=== PATIENT | male | born 1990 | race Caucasian/White ===

== ENCOUNTER 2017-12-18 02:26 | Emergency (ER) | payer OTHER ==
[~2017-12-18] VITALS: Ht 182.9 cm; Wt 93.0 kg
[2017-12-18] MEDS ORDERED: IBUPROFEN 400MG TABLET PO ONE (03:00)
[2017-12-18 03:23] LABS: BASOPHILS % 0.5 % (0.0-2.0); EOSINOPHILS % 5.8 % (0.0-5.0); HEMATOCRIT. 42.8 % (42.0-52.0); LYMPHOCYTES % 30.2 % (20.0-50.0); MEAN CORPUSCULAR HEMOGLOBIN 31.5 pg (28.0-32.0); MEAN CORPUSCULAR VOLUME 89.8 fL (80.0-94.0); MEAN PLATELET VOLUME 8.6 fl (7.4-10.4); MONOCYTES % 8.6 % (2.0-8.0); NEUTROPHILS % 54.9 % (40.0-76.0); PLATELET 216 x1000/uL (130-400); RED BLOOD CELL COUNT 4.77 mill/uL (4.7-6.1); RED CELL DISTRIBUTION WIDTH 13.1 % (11.6-14.6)
[2017-12-18 04:01] LABS: CARBON DIOXIDE 27 mEq/L (21-32); CHLORIDE 106 mEq/L (98-107)
[2017-12-18 04:03] LABS: TROPONIN I < 0.02 ng/mL (0.00-0.04)
[2017-12-18 04:33] VITALS: BP 122/78
== END 2017-12-18 04:30 | disposition home or self-care (01) ==
LOC: ER 02:26
DX: F41.1 Generalized anxiety disorder (principal); Z87.891 Personal history of nicotine dependence
CPT/HCPCS: 36415; 71045; 80053; 83690; 84484; 85025; 93005; 99285

== ENCOUNTER 2019-10-24 20:01 | Emergency (ER) | payer MEDICAID, OTHER ==
[~2019-10-24] VITALS: Ht 180.3 cm; Wt 98.0 kg
[2019-10-24 23:06] LABS: BASOPHILS % 0.7 % (0.0-2.0); EOSINOPHILS % 5.2 % (0.0-5.0); HEMATOCRIT. 47.6 % (42.0-52.0); HEMOGLOBIN. 16.5 g/dL (14.0-18.0); LYMPHOCYTES % 30.5 % (20.0-50.0); MEAN CORPUSCULAR HEMOGLOBIN 31.6 pg (28.0-32.0); MEAN CORPUSCULAR VOLUME 90.9 fL (80.0-94.0); MEAN PLATELET VOLUME 8.9 fl (7.4-10.4); MONOCYTES % 8.5 % (2.0-8.0); NEUTROPHILS % 55.1 % (40.0-76.0); PLATELET 294 x1000/uL (130-400); RED BLOOD CELL COUNT 5.24 mill/uL (4.7-6.1); RED CELL DISTRIBUTION WIDTH 13.5 % (11.6-14.6)
[2019-10-24 23:11] LABS: CHLORIDE 108 mEq/L (98-107)
[2019-10-24 23:14] LABS: D-DIMER 0.24 mg/L FEU (<0.50); PARTIAL THROMBOPLASTIN TIME 28.4 sec (23.4-31.0); PROTHROMBIN TIME 10.1 sec (9.6-11.0)
[2019-10-25 02:08] VITALS: BP 100/65
== END 2019-10-25 02:12 | disposition home or self-care (01) ==
LOC: ER 20:01 → CANBEDREQ 10-25 08:14
DX: R07.89 Other chest pain (principal); M79.605 Pain in left leg; M79.604 Pain in right leg
CPT/HCPCS: 36415; 71045; 71275; 80053; 83880; 84484; 85025; 85379; 93005; 93970; 99284

== ENCOUNTER 2020-01-30 02:29 | Emergency (ER) | payer MEDICAID, OTHER ==
[~2020-01-30] VITALS: Ht 177.8 cm; Wt 88.0 kg
[2020-01-30] MEDS ORDERED: IPRATROPIUM BROMIDE (0.02%) 0.5MG/2.5ML NEB HHN STA (04:13)
[2020-01-30] MEDS ORDERED: ALBUTEROL (0.083%) 2.5MG/3ML NEB HHN STA (04:13)
[2020-01-30] MEDS ORDERED: IPRATROPIUM BROMIDE (0.02%) 0.5MG/2.5ML NEB HHN ONE (04:30)
[2020-01-30 05:00] VITALS: BP 150/95
== END 2020-01-30 05:15 | disposition home or self-care (01) ==
LOC: ER 03:30
DX: R05 Cough (principal); R07.89 Other chest pain; Z88.0 Allergy status to penicillin
CPT/HCPCS: 71045; 99283

== ENCOUNTER 2020-06-11 16:02 | Inpatient (IN) | payer MEDICAID, OTHER ==
[~2020-06-11] VITALS: Ht 165.1 cm; Wt 74.9 kg
[2020-06-11] MEDS ORDERED: DIAZEPAM 5 MG TABLET PO ONE (17:30)
[2020-06-11] MEDS: ACETAMINOPHEN 325MG TABLET PO STA ×2 (17:46→18:28)
[2020-06-11 18:36] LABS: CLARITY URINE CLEAR (CLEAR); COLOR URINE YELLOW (YELLOW); KETONES URINE NEGATIVE (NEGATIVE); LEUKOCYTE ESTERASE URINE NEGATIVE (NEGATIVE); NITRITE URINE NEGATIVE (NEGATIVE); OCCULT BLOOD URINE NEGATIVE (NEGATIVE); PH URINE 5.5 (4.5-8.0); PROTEIN URINE NEGATIVE (NEGATIVE); SPECIFIC GRAVITY URINE 1.028 (1.005-1.030); UROBILINOGEN URINE 0.2 E.U./dL (0.2-1.0)
[2020-06-11 18:46] LABS: BASOPHILS % 0.8 % (0.0-2.0); EOSINOPHILS % 3.3 % (0.0-5.0); HEMATOCRIT. 45.8 % (42.0-52.0); LYMPHOCYTES % 18.7 % (20.0-50.0); MEAN CORPUSCULAR HEMOGLOBIN 32.2 pg (28.0-32.0); MEAN CORPUSCULAR VOLUME 92.2 fL (80.0-94.0); MEAN PLATELET VOLUME 9.2 fl (7.4-10.4); MONOCYTES % 9.2 % (2.0-8.0); PLATELET 204 x1000/uL (130-400); RED BLOOD CELL COUNT 4.97 mill/uL (4.7-6.1); RED CELL DISTRIBUTION WIDTH 13.1 % (11.6-14.6)
[2020-06-11 18:52] LABS: CHLORIDE 107 mEq/L (98-107)
[2020-06-11 18:55] LABS: PROTHROMBIN TIME 10.6 sec (9.6-11.0)
[2020-06-12 02:30] VITALS: BP 117/80
[2020-06-12] MEDS ORDERED: MORPHINE SULFATE 2 MG/ML CPJ (NOT FOR IM USE) IV PRN (03:15)
[2020-06-12] MEDS ORDERED: HYDROCODONE/ACETAMINOPHEN 10/325MG TABLET PO PRN (03:45)
[2020-06-12] MEDS ORDERED: ACET125T3 PO (05:08)
[2020-06-12] MEDS ORDERED: PRED1TAB PO (05:08)
[2020-06-12 08:00] VITALS: BP 104/67
[2020-06-12 12:00] VITALS: BP 110/77
[2020-06-12] MEDS ORDERED: LACTULOSE 20G/30ML UDC PO NR (13:00)
[2020-06-12] MEDS ORDERED: TRAM50TA MT (13:01)
[2020-06-12] MEDS ORDERED: SORBITOL 70% SOLN 30ML PO PRN (14:45)
[2020-06-12 16:00] VITALS: BP 122/68
[2020-06-12 17:52] VITALS: BP 122/68
[2020-06-12 18:04] LABS: HEMATOCRIT 45.7 % (42.0-52.0); HEMOGLOBIN 15.6 g/dL (14.0-18.0)
== END 2020-06-12 18:30 | disposition home or self-care (01) | DRG 347 ==
LOC: ER 16:02 → MICUSO 23:47 → EDBEDREQTM 23:52 → EDBEDREQ 23:52 → 6EST 06-12 01:41
PROVIDERS: ADMIT Internal Medicine; ATTEND Internal Medicine
DX: M51.26 Other intervertebral disc displacement, lumbar region (principal); M48.061 Spinal stenosis, lumbar region without neurogenic claudication; M47.816 Spondylosis without myelopathy or radiculopathy, lumbar region; N20.0 Calculus of kidney; G89.29 Other chronic pain; Z82.49 Family history of ischemic heart disease and other diseases of the circulatory system; Z87.442 Personal history of urinary calculi; Z88.0 Allergy status to penicillin; Z79.899 Other long term (current) drug therapy
CPT/HCPCS: 36415; 72148; 74176; 80053; 81003; 82270; 85014; 85018; 85025; 93005; 97161; 99285; J2270

== ENCOUNTER 2020-06-22 20:58 | Inpatient (IN) | payer OTHER ==
[~2020-06-22] VITALS: Ht 175.3 cm; Wt 95.7 kg
[~2020-06-22 20:58] MED LIST: ACET125T3 PO; PRED1TAB PO; TRAM50TA MT
[2020-06-22 23:02] LABS: BASOPHILS % 0.6 % (0.0-2.0); EOSINOPHILS % 4.3 % (0.0-5.0); HEMOGLOBIN. 15.7 g/dL (14.0-18.0); LYMPHOCYTES % 20.6 % (20.0-50.0); MEAN CORPUSCULAR HEMOGLOBIN 32.1 pg (28.0-32.0); MEAN CORPUSCULAR VOLUME 92.3 fL (80.0-94.0); MEAN PLATELET VOLUME 9.1 fl (7.4-10.4); MONOCYTES % 9.4 % (2.0-8.0); NEUTROPHILS % 65.1 % (40.0-76.0); PLATELET 208 x1000/uL (130-400); RED BLOOD CELL COUNT 4.88 mill/uL (4.7-6.1); RED CELL DISTRIBUTION WIDTH 12.9 % (11.6-14.6)
[2020-06-22 23:09] LABS: CHLORIDE 109 mEq/L (98-107)
[2020-06-22 23:16] LABS: PROTHROMBIN TIME 10.1 sec (9.6-11.0)
[2020-06-22] MEDS ORDERED: SODIUM CHLORIDE 0.9% 1,000 ML IV ONE (23:45)
[2020-06-23 00:44] LABS: PROTHROMBIN TIME 10.4 sec (9.6-11.0)
[2020-06-23 00:46] LABS: CHLORIDE 108 mEq/L (98-107)
[2020-06-23] MEDS ORDERED: MORPHINE SULFATE 4 MG/ML CPJ (NOT FOR IM USE) IV ONE (01:30)
[2020-06-23 03:28] LABS: CLARITY URINE CLEAR (CLEAR); COLOR URINE YELLOW (YELLOW); KETONES URINE NEGATIVE (NEGATIVE); LEUKOCYTE ESTERASE URINE NEGATIVE (NEGATIVE); NITRITE URINE NEGATIVE (NEGATIVE); OCCULT BLOOD URINE NEGATIVE (NEGATIVE); PROTEIN URINE NEGATIVE (NEGATIVE); SPECIFIC GRAVITY URINE 1.025 (1.005-1.030); UROBILINOGEN URINE 0.2 E.U./dL (0.2-1.0)
[2020-06-23 04:19] VITALS: BP 120/61
[2020-06-23] MEDS ORDERED: MORPHINE SULFATE 2 MG/ML CPJ (NOT FOR IM USE) IV PRN ×2 (06:00→15:30)
[2020-06-23 08:00] VITALS: BP_SYST 74
[2020-06-23] MEDS ORDERED: IPRATROPIUM/ALBUTEROL 0.5-3(2.5)MG/3ML NEB HHN PRN (08:45)
[2020-06-23] MEDS ORDERED: HYDROCODONE/ACETAMINOPHEN 5/325MG TABLET PO PRN (08:45)
[2020-06-23] MEDS ORDERED: ONDANSETRON HCL 4MG/2ML INJ IV PRN (08:45)
[2020-06-23] MEDS ORDERED: CLONIDINE 0.1MG TABLET PO PRN (08:45)
[2020-06-23] MEDS ORDERED: DOCUSATE SODIUM 100MG CAPSULE PO PRN (08:45)
[2020-06-23] MEDS ORDERED: MAGNESIUM/ALUMINUM HYDROXIDE/SIMETHICONE 30ML UDC PO PRN (08:45)
[2020-06-23] MEDS ORDERED: DIATR MEGLU/DIATRIZOATE SOLN 30ML PO SCH (09:15)
[2020-06-23] MEDS: PANTOPRAZOLE SODIUM 40 MG/VIAL IV SCH (09:26)
[2020-06-23] MEDS: PREDNISONE 1MG TABLET PO SCH (09:26)
[2020-06-23 12:00] VITALS: BP_SYST 100; BP_SYST 185; BP_DIAS 58; BP_DIAS 89
[2020-06-23 12:10] LABS: TOTAL IRON BINDING CAPACITY 299 ug/dL (250-450)
[2020-06-23] MEDS ORDERED: IOHEXOL-300 100 ML BOTTLE ONE (13:34)
[2020-06-23 16:00] VITALS: BP 126/78
[2020-06-23] MEDS: SODIUM CHLORIDE 0.9% 1,000 ML IV SCH (18:26)
[2020-06-23] MEDS: ACETAMINOPHEN 325MG TABLET PO PRN (18:45)
[2020-06-23 20:00] VITALS: BP 116/72
[2020-06-23] MEDS ORDERED: METOCLOPRAMIDE HCL 10MG/2ML VIAL IV NR ×2 (20:00→22:00)
[2020-06-23] MEDS: BISACODYL 5MG TABLET PO NR ×2 (20:20→20:22)
[2020-06-23] MEDS: SORBITOL 70% SOLN 30ML PO NR ×2 (20:22→20:30)
[2020-06-23] MEDS ORDERED: SORBITOL 70% SOLN 30ML PO NR (22:30)
[2020-06-23] MEDS ORDERED: BISACODYL 5MG TABLET PO NR (22:30)
[2020-06-24] VITALS: BP 99/63
[2020-06-24] LABS: CHLORIDE 107 mEq/L (98-107)
[2020-06-24 04:00] VITALS: BP 116/70
[2020-06-24] MEDS ORDERED: METOCLOPRAMIDE HCL 10MG/2ML VIAL IV NR (04:00)
[2020-06-24] MEDS ORDERED: SORBITOL 70% SOLN 30ML PO NR (04:00)
[2020-06-24] MEDS ORDERED: BISACODYL 5MG TABLET PO NR (04:00)
[2020-06-24] MEDS: ACETAMINOPHEN 325MG TABLET PO PRN ×2 (04:21→11:11)
[2020-06-24 06:23] LABS: BASOPHILS % 0.3 % (0.0-2.0); EOSINOPHILS % 4.5 % (0.0-5.0); HEMATOCRIT. 42.7 % (42.0-52.0); HEMOGLOBIN. 14.7 g/dL (14.0-18.0); LYMPHOCYTES % 20.6 % (20.0-50.0); MEAN CORPUSCULAR HEMOGLOBIN 31.7 pg (28.0-32.0); MEAN CORPUSCULAR VOLUME 91.7 fL (80.0-94.0); MEAN PLATELET VOLUME 9.3 fl (7.4-10.4); NEUTROPHILS % 64.6 % (40.0-76.0); PLATELET 194 x1000/uL (130-400); RED BLOOD CELL COUNT 4.65 mill/uL (4.7-6.1); RED CELL DISTRIBUTION WIDTH 12.7 % (11.6-14.6)
[2020-06-24 06:49] LABS: PROTHROMBIN TIME 10.7 sec (9.6-11.0)
[2020-06-24 07:06] LABS: CHLORIDE 106 mEq/L (98-107)
[2020-06-24] MEDS: SODIUM CHLORIDE 0.9% 1,000 ML IV SCH (07:20)
[2020-06-24 07:29] LABS: HDL CHOLESTEROL 37 mg/dL (40-59)
[2020-06-24 07:32] LABS: LDL CHOLESTEROL 162 mg/dL (5-100)
[2020-06-24 07:33] LABS: PHOSPHORUS 3.7 mg/dL (2.5-4.9)
[2020-06-24 08:00] VITALS: BP_SYST 103; BP_SYST 112; BP_DIAS 61; BP_DIAS 67; BP_DIAS 68
[2020-06-24] MEDS: PREDNISONE 1MG TABLET PO SCH (08:30)
[2020-06-24] MEDS: PANTOPRAZOLE SODIUM 40 MG/VIAL IV SCH (08:31)
[2020-06-24] MEDS ORDERED: POTASSIUM CHLORIDE 20MEQ TABLET SR PO SCH (10:15)
[2020-06-24 12:00] VITALS: BP 112/68
[2020-06-24] MEDS ORDERED: ATOR10TA69 MT (13:56)
[2020-06-24 14:14] VITALS: BP 112/68
== END 2020-06-24 15:06 | disposition home or self-care (01) | DRG 253 ==
LOC: ER 20:58 → 6EST 06-23 01:50 → ENRESERV 06-23 03:07
PROVIDERS: ADMIT Internal Medicine; ATTEND Internal Medicine
DX: K62.5 Hemorrhage of anus and rectum (principal); M51.9 Unspecified thoracic, thoracolumbar and lumbosacral intervertebral disc disorder; D64.9 Anemia, unspecified; M25.48 Effusion, other site; M48.061 Spinal stenosis, lumbar region without neurogenic claudication; Z53.29 Procedure and treatment not carried out because of patient's decision for other reasons; K42.9 Umbilical hernia without obstruction or gangrene; Z82.49 Family history of ischemic heart disease and other diseases of the circulatory system; Z88.0 Allergy status to penicillin; Z83.2 Family history of diseases of the blood and blood-forming organs and certain disorders involving the immune mechanism; Z83.79 Family history of other diseases of the digestive system; E87.8 Other disorders of electrolyte and fluid balance, not elsewhere classified
CPT/HCPCS: 36415; 74177; 76700; 80053; 80061; 81003; 82270; 83540; 83550; 83605; 83735; 84100; 84443; 85025; 93005; 93970; 97162; 97166; 99285; C9113; J2270; J2765; J7030; J7512; Q9963; Q9967